=== PATIENT | female | born 2000 | race African-American/Black ===

== ENCOUNTER 2023-06-03 22:32 | Emergency (ER) | payer OTHER ==
[~2023-06-03] VITALS: Ht 160 cm; Wt 70.5 kg
[2023-06-03 22:40] VITALS: BP 108/55; PULSE 80; RESP 18; TEMP 98.4
[2023-06-04 00:55] LABS: APPEARANCE,URINE CLEAR (CLEAR); BILIRUBIN,URINE NEGATIVE (NEGATIVE); COLOR,URINE LIGHT YELLOW (YELLOW); GLUCOSE, URINE (UA) NEGATIVE (NEGATIVE); KETONES,URINE NEGATIVE (NEGATIVE); LEUKOCYTE ESTERASE ,URINE MODERATE (NEGATIVE); NITRATE,URINE NEGATIVE (NEGATIVE); OCCULT BLOOD,URINE NEGATIVE (NEGATIVE); PH,URINE 5.5 (5.0-8.0); PROTEIN,URINE TRACE mg/dL (NEGATIVE); SPECIFIC GRAVITIY, URINE 1.031 (1.003-1.030); UROBILINOGEN,URINE <=1.0 mg/dL (<=1.0)
[2023-06-04 01:08] LABS: BACTERIA,URINE Rare /HPF (None Seen); RBC,URINE None Seen /HPF (0-2)
[2023-06-04 01:09] LABS: SQUAMOUS EPITHELIAL CELL,UR Moderate /LPF (None Seen)
[2023-06-04] MEDS ORDERED: CEPH-558 PO (01:26)
== END 2023-06-04 01:50 | disposition home or self-care (01) ==
LOC: EMS 22:32
DX: N39.0 Urinary tract infection, site not specified (principal); F17.210 Nicotine dependence, cigarettes, uncomplicated; F12.980 Cannabis use, unspecified with anxiety disorder; Z98.890 Other specified postprocedural states
CPT/HCPCS: 81001; 87086; 87186; 99283